=== PATIENT | male | born 1975 | race Caucasian/White ===

== ENCOUNTER 2020-03-25 08:38 | Day surgery (SDC) | payer BC ==
[2020-03-25] MEDS ORDERED: Lactated Ringers 1,000 ML IV SCH (09:00)
[2020-03-25] MEDS ORDERED: MEFOXIN 2 GM PREMIX** 2 GM/50 ML ML IV ONE ×2 (09:43→11:55)
[2020-03-25] MEDS ORDERED: MEFOXIN 2 GM PREMIX** 2 GM/50 ML ML IV SCH (10:00)
[2020-03-25] MEDS ORDERED: Zofran 4 MG/2 ML VIAL ONE (10:49)
[2020-03-25] MEDS ORDERED: Ketamine HCl 50 MG/ML ONE (10:49)
[2020-03-25] MEDS ORDERED: SUBLIMAZE 100 MCG/2 ML ONE ×2 (10:49→11:54)
[2020-03-25] MEDS ORDERED: BRIDION 200MG/2ML IV ONE (10:49)
[2020-03-25] MEDS ORDERED: DIPRIVAN 200 MG/20 ML IV ONE (10:49)
[2020-03-25] MEDS ORDERED: Quelicin Fliptop 200 MG/10 ML ONE (10:49)
[2020-03-25] MEDS ORDERED: TORAdol 30 mg Injection ONE (10:49)
[2020-03-25] MEDS ORDERED: Xylocaine-Mpf 2% 5 Ml Vial ONE (10:49)
[2020-03-25] MEDS ORDERED: Zemuron 100 MG/10 ML ONE (10:49)
[2020-03-25] MEDS ORDERED: Decadron 4 MG INJ ONE (10:49)
[2020-03-25] MEDS ORDERED: ROBINUL ONE (11:39)
[2020-03-25] MEDS ORDERED: Lactated Ringers 1,000 ML IV ONE (11:40)
[2020-03-25] MEDS ORDERED: Sensorcaine 0.25% 10 ML ONE ×2 (11:40→12:08)
[2020-03-25] MEDS ORDERED: DEMEROL 50 MG ONE (11:58)
[2020-03-25] MEDS ORDERED: NORCO 5/325 MG PO PRN (12:51)
[2020-03-25] MEDS ORDERED: NORCO 5/325 MG ONE (12:53)
[2020-03-25 13:08] VITALS: BP 122/87; PULSE 77; O2SAT 97
--- NOTE | 2020-03-25 13:25 | OP ---
SURGERY DATE/TIME: 03/25/2020 1048 PREOPERATIVE DIAGNOSIS: Chronic cholecystitis with biliary dyskinesia. POSTOPERATIVE DIAGNOSES: Chronic cholecystitis with biliary dyskinesia. PROCEDURE: Laparoscopic cholecystectomy. SURGEON: Samuel Larios M.D. ANESTHESIA: General. ESTIMATED BLOOD LOSS: 20. CONDITION: Patient condition stable. COMPLICATIONS: None. SPECIMEN: Gallbladder. HISTORY: The patient is a 44 year-old male with a history of postprandial right upper quadrant abdominal pain worse with fatty foods. He had GI work up with EGD. He was started on PPI with essentially no improvement. He had minimal inflammation on the scope. HIDA scan revealed ejection fraction of less than 15%. Risk of infection, bleeding, bile leak, injury to nearby structures and hernia were discussed with the patient and he elected to proceed. FINDINGS: Critical view was easily obtained. No stones. DESCRIPTION OF PROCEDURE: The patient was brought to the operating room. General anesthesia was induced. He was placed supine with arms out. SCD's were applied. He was routinely prepped and draped. Preoperative antibiotic was given. Veress needle was inserted in left upper quadrant. Opening pressure was 4. Pneumoperitoneum established. A 5 mm Optiview trocar was placed in the left upper quadrant. A 5 mm trocar was placed infraumbilical. Two additional 5 mm trocars were placed in the right upper quadrant. Lidocaine was injected in the port sites. The patient was positioned. Gallbladder was retracted. The cystic duct and cystic artery were dissected out with a combination of L-hook cautery, [place], blunt dissection. He had excellent anatomy. The common bile duct was visible and away from the dissection. The cystic duct was clipped three down and one up this was with a 5 mm metal clip inspector shells. The cystic artery was clipped two down. Both were divided. The gallbladder was taken off the liver fossa with cautery. A small hole was made in the gallbladder for evacuation. The bile was suctioned out with suction china decorator. There were no apparent stones. The gallbladder was then grasped and taken out through the umbilical port site. Minimal spreading was necessary. Port was reinserted. Right upper quadrant was irrigated and suctioned. There was good hemostasis. The clips are in good position and satisfactory. The umbilical trocar site was closed with 0 Vicryl suture passer. The right upper quadrant ports were removed under direct visualization. Left upper quadrant port was used for desufflation and removed. The skin was closed with 4-0 Vicryl suture. Steri-Strips and sterile dressings applied. All counts were correct. The patient tolerated the procedure well.
== END 2020-03-25 13:18 | disposition home or self-care (01) ==
LOC: SDC 08:38
PROVIDERS: ATTEND Surgery
DX: K81.1 Chronic cholecystitis (principal); K82.8 Other specified diseases of gallbladder
CPT/HCPCS: 88304; J0330; J0694; J1100; J1885; J2175; J2405; J2704; J3010; A9270-GY

== ENCOUNTER 2025-06-19 12:07 | Day surgery (SDC) | payer BC ==
[2025-06-19 12:24] VITALS: RESP 16
[2025-06-19] MEDS: Lactated Ringers 1,000 ML IV SCH (12:30)
[2025-06-19] MEDS ORDERED: Xylocaine-Mpf 2% 5 Ml Vial ONE (14:34)
[2025-06-19] MEDS ORDERED: propofoL IV ONE ×5 (14:34→15:07)
[2025-06-19 15:59] VITALS: O2SAT 99
[2025-06-19 16:15] VITALS: BP 120/78; PULSE 62; TEMP 97.8
--- NOTE | 2025-06-20 10:31 | OP ---
SURGERY DATE/TIME: 06/19/2025 [id number] PREOPERATIVE DIAGNOSES: 1) Heartburn. 2) Due for colorectal cancer screening, average risk. POSTOPERATIVE DIAGNOSIS: Moderate to severe gastritis. PROCEDURE: 1) Esophagogastroduodenoscopy with biopsy. 2) Colonoscopy. SURGEON: Samuel Larios MD ANESTHESIA: IV. CONDITION: Stable. COMPLICATIONS: None. SPECIMENS: Gastric for H pylori. INDICATIONS: Patient is a 49-year-old male who does have some heartburn symptoms despite being on a PPI of omeprazole 20 daily, and also is overdue for a colorectal screening, average risks. Discussed with him and he elects to proceed with endoscopy. ASSISTANTS: Dr. Guzman Castillo MD did most of the procedure while I was there. FINDINGS: Moderate to severe gastritis with blood specks in the stomach, very superficial erosions. Colonoscopy with a good preparation. No lesions identified. Mild hemorrhoids. DESCRIPTION OF PROCEDURE AND FINDINGS: Patient brought to the endoscopy suite, routinely positioned, and prepared. IV anesthesia induced by Anesthesia. The gastroscope inserted through the mouth, advanced through the third portion of the duodenum. Duodenum is normal in appearance. Stomach does have moderate to severe gastritis with a lot of blood specks throughout the stomach and then some minimal superficial erosions, otherwise erythema and friability. Retroflexion satisfactory. GE junction normal. Esophagus normal. Gastric biopsy was taken for H pylori with the cold forceps. Stomach is suctioned out. Scope withdrawn. Rectal examination with some mild external nonthrombosed hemorrhoids. Scope inserted and advanced to the terminal ileum. Pictures of the terminal ileum, appendiceal orifice, ileocecal valve taken. Preparation is [place] good preparation with over 90% mucosal visualization. Greater than 8 minutes withdrawal time. There are no lesions identified on withdrawal. Satisfactory retroflexion. Patient tolerated the procedure well, was taken to Recovery in stable condition.
== END 2025-06-19 16:15 | disposition home or self-care (01) ==
LOC: SDC 12:07
PROVIDERS: ATTEND Surgery
DX: K29.70 Gastritis, unspecified, without bleeding (principal); Z12.11 Encounter for screening for malignant neoplasm of colon; R12 Heartburn; K64.4 Residual hemorrhoidal skin tags